=== PATIENT | male | born 1990 | race Caucasian/White ===

== ENCOUNTER 2016-12-24 17:16 | Emergency (ER) | payer OTHER ==
[~2016-12-24] VITALS: Ht 180.3 cm; Wt 74.6 kg
[2016-12-24 17:32] VITALS: TEMP 36.6; Ht 180.3 cm; Wt 74.6 kg
[2016-12-24] MEDS ORDERED: DIPHTHERIA/TETANUS/PERTUSSIS 0.5 ML SYR/VIAL IM. ONE (18:30)
[2016-12-24 19:12] LABS: HEPATITIS B AB POS
[2016-12-24 20:45] VITALS: BP 115/72; PULSE 67; O2SAT 96
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
== END 2016-12-24 20:35 | disposition home or self-care (01) ==
LOC: C.EDB 17:19 → C.EDD 20:35
DX: S41.052A Open bite of left shoulder, initial encounter (principal); Y04.1XXA Assault by human bite, initial encounter; Y92.149 Unspecified place in prison as the place of occurrence of the external cause; Y99.0 Civilian activity done for income or pay; Y93.89 Activity, other specified; Z77.21 Contact with and (suspected) exposure to potentially hazardous body fluids; Z23 Encounter for immunization